=== PATIENT | female | born 1945 | race Caucasian/White ===

== ENCOUNTER 2021-06-25 14:25 | Inpatient (IN) | payer MEDICARE, SELFPAY ==
[2021-06-25] VITALS (11 sets, daily range): BP systolic 118–166; BP diastolic 83–119; PULSE 118–148; RESP 14–36; TEMP 36.7–37.4; O2SAT 93–99; BMI 25.9
--- NOTE | ~2021-06-25 | XR_ITS ---
EXAMINATION: XR chest 2V DATE: 06/25/2021 15:34 INDICATION: Heart palpitations and tachycardia. TECHNIQUE: Frontal and lateral views of the chest are obtained COMPARISON: None available FINDINGS: There are minimal opacities of the lung bases. Small pleural effusions are present. There i s no pneumothorax. A nodular opacity projects in the anterior aspect of the lower thorax on the later al view. Cardiomegaly is noted. There is mild thoracic spondylosis. IMPRESSION: 1. Cardiomegaly. 2. Small pleural effusions. 3. Possible basilar lung nodule. Further evaluation with CT of the chest is recommended. Reviewed, dictated and finalized at location B. IMPRESSION: 1. Cardiomegaly. 2. Small pleural effusions. 3. Possible basilar lung nodule. Further evaluation with CT of the chest is rec ommended.
--- NOTE | ~2021-06-25 | CT_ITS ---
EXAMINATION:CT diagnostic chest wo con DATE: 06/26/2021 09:01 INDICATION: Lung nodule. TECHNIQUE: Computed tomography (CT) of the chest was performed without intravenous contrast. Automate d exposure control and iterative reconstruction technique were employed. The dose-length product (DLP ) was 139.98 mGy-cm. COMPARISON: Chest 2 views 06/25/21 FINDINGS: There are small pleural effusions. There is smooth septal thickening in the lungs, consiste nt with mild pulmonary edema. There is a 4 mm nodule in right upper lobe, likely benign. There is mil d atelectasis bilaterally. There is a pneumatocele in left lower lobe. Cardiomegaly is noted. There a re coronary artery calcifications. No pericardial effusion. There is mild mediastinal lymphadenopathy , likely reactive. There is a small sliding hiatal hernia. There is a 1.6 cm mass in left adrenal gla nd measuring low-attenuation, consistent with an adenoma. There is dextroscoliosis of thoracic spine. There is severe thoracic spondylosis. IMPRESSION: 1. No evidence of malignancy. 2. Mild pulmonary edema. 3. Small pleural effusions. 4. Cardiomegaly. Reviewed, dictated and finalized at location A.
--- NOTE | 2021-06-25 15:20 | ECG_ITS ---
Measurements Intervals [place] Rate: 145 P: 64 MA: 93 QRS: -39 QRSD: 108 T: 147 QT: 285 QTc: 443 Interpretive Statements ATRIAL FLUTTER/TACHYCARDIA WITH RAPID VENTRICULAR RESPONSE FREQUENT VENTRICULAR PREMATURE COMPLEXES LEFT AXIS DEVIATION INTRAVENTRICULAR CONDUCTION DELAY LEFT VENTRICULAR HYPERTROPHY AND ST-T CHANGE POOR R WAVE PROGRESSION, ANTERIOR LEADS CONSIDER INFERIOR INFARCT, AGE INDETERMINATE ABNORMAL ECG Electronically Signed On 06-25-2021 15:46:55 CDT by Edgard Valentin D.O.
[2021-06-25 15:37] LABS: Basophils Absolute Auto 0.1 K/mm3 (0.0-0.1); Basophils Percent Auto 1.3 % (0.2-1.2); Eosinophils Absolute Auto 0.1 K/mm3 (0-0.3); Eosinophils Percent Auto 1.1 % (0-4.4); Hematocrit 41.8 % (37.0-47.0); Hemoglobin 13.6 g/dL (12.0-15.0); Immature Granulocyte Absolute 0.04 K/mm3 (0.00-0.031); Immature Granulocyte Percent A 0.5 % (0-0.5); Lymphocytes Absolute Auto 2.03 K/mm3 (0.9-3.2); Lymphocytes Percent Auto 25.8 % (18.3-44.2); Mean Corpuscular HGB Conc 32.5 g/dl (32-36); Mean Corpuscular Volume 89.1 fl (80-100); Mean Platelet Volume 8.9 fl (7.4-10.4); Monocytes Absolute Auto 0.8 K/mm3 (0.1-0.6); Monocytes Percent Auto 9.5 % (2.6-8.5); Neutrophils Absolute Auto 4.9 K/mm3 (1.3-6.7); Neutrophils Percent Auto 61.8 % (45.5-73.1); Platelet Count Result 221 k/mm3 (150-375); Red Blood Count 4.69 M/mm3 (4.2-5.4); Red Cell Distribution Width 14.6 % (11.5-14.5); White Blood Count 7.9 K/mm3 (4.5-10.0)
[2021-06-25 15:47] LABS: Anion Gap 7 mmol/L (8-16); Blood Urea Nitrogen 18 mg/dL (7-17); Calcium 9.1 mg/dL (8.4-10.2); Carbon Dioxide 25 mmol/L (22-30); Chloride 111 mmol/L (98-107); Estimated CRCL calculation 41 ml/min; Estimated Glomerular Filt Rate > 60; Glucose 110 mg/dL (65-110); Potassium 3.8 mmol/L (3.4-5.0); Sodium 143 mmol/L (137-145)
[2021-06-25 15:53] LABS: INR 1.1; Prothrombin Time 14.4 Seconds (11.1-14.7)
[2021-06-25 15:54] LABS: Partial Thromboplastin Time 26.7 SECONDS (22.3-36.8)
[2021-06-25 16:03] LABS: Troponin I 0.044 ng/mL (0.000-0.034)
--- NOTE | 2021-06-25 17:16 | ED.GENADULT ---
HPI - General Adult General Chief complaint: Arrhythmia/Palpitations Stated complaint: atrial flutter, from paper [employer] office Time Seen by Provider: 06/25/21 16:13 Source: patient History of Present Illness HPI narrative: Patient is a 75 y/o female complaining of fast pulse for 1 week. She state that her pulse was in 140s when she checked with pulse ox. She has no chest pain, SOB or palpitation. Related Data Home Medications Medication Instructions Recorded Confirmed metoprolol tartrate 12.5 mg PO BID 06/25/21 06/25/21 Allergies Allergy/AdvReac Type Severity Reaction Status Date / Time No Known Allergies Allergy Verified 06/25/21 22:59 Review of Systems Constitutional: Constitutional: Denies chills, Denies fever(s), Denies headache(s) and Denies weakness Eyes: Eyes: Denies blurry vision ENT: Denies headache(s) and Denies neck pain Cardiovascular: Cardiovascular: Denies chest pain, Reports palpitations and Denies dyspnea Respiratory: Respiratory: Denies cough and Denies dyspnea Gastrointestinal: Gastrointestinal: Denies abdominal pain, Denies diarrhea, Denies nausea and Denies vomiting Genitourinary: Genitourinary: Denies hematuria and Denies dysuria Musculoskeletal: Musculoskeletal: Denies back pain and Denies neck pain Neurologic: Denies headache(s) and Denies weakness COUNTS INCLUDE 234 BEDS AT THE [facility] Social History Social History Smoking status: Never smoker Second hand tobacco smoke exposure: No Alcohol intake: never Substance use: never Spiritual care concerns: No Exam Const: General: no acute distress and well developed Orientation/consciousness: oriented to person, oriented to place, oriented to time and patient oriented x3 HENMT: Head: normocephalic Ears: external ears normal General nose exam: Normal external nose present Eyes: General: appearance normal, both eyes and all related structures Conjunctivae: conjunctivae normal Neck: Neck: normal visual inspection and full ROM Chest: Chest palpation & inspection: normal inspection of the chest and no tenderness Resp: Effort & Inspection: normal respiratory effort Auscultation: clear to auscultation bilaterally Cardio: Rate: tachycardic Rhythm: regular rhythm GI: GI Palp: No abdominal tenderness and Yes Soft to palpation Skin: General skin exam: normal color and turgor normal Neuro: General: oriented to person, oriented to place, oriented to time and patient oriented x3 Cognition (Neuro): normal cognition Extrem: General: normal to inspection, full ROM and no pedal edema Psych: Appearance: grossly normal Mental Status: mental status grossly normal Affect: normal affect Course Consultations Consultation #1: Discussed with SUSAN Marcus, who agrees to admit. Date: 06/25/21 Time: 17:55 Consultation #2: Discussed with Dr. Duron, who agrees to consult. Date: 06/25/21 Time: 19:12 Vital Signs Vital signs: Vital Signs Temperature 37.4 C 06/25/21 15:17 Pulse Rate 147 H 06/25/21 15:17 Respiratory Rate 14 06/25/21 15:17 Blood Pressure 151/112 H 06/25/21 15:17 Pulse Oximetry 99 06/25/21 15:17 Temperature 36.7 C 06/25/21 23:21 Pulse Rate 125 H 06/25/21 23:21 Respiratory Rate 20 06/25/21 23:21 Blood Pressure 160/94 H 06/25/21 23:21 Pulse Oximetry 97 06/25/21 23:21 Medical Decision Making Vital Signs Vital Signs: Vital Signs Temperature 37.4 C 06/25/21 15:17 Pulse Rate 147 H 06/25/21 15:17 Respiratory Rate 14 06/25/21 15:17 Blood Pressure 151/112 H 06/25/21 15:17 Pulse Oximetry 99 06/25/21 15:17 Temperature 36.7 C 06/25/21 23:21 Pulse Rate 125 H 06/25/21 23:21 Respiratory Rate 20 06/25/21 23:21 Blood Pressure 160/94 H 06/25/21 23:21 Pulse Oximetry 97 06/25/21 23:21 Lab Data Result diagrams: 06/25/21 15:28 06/25/21 15:28 Labs: Lab Results 06/25/21 06/25/21 06/25/21 Range/Units 15
[2021-06-25] MEDS: dilTIAZem HCl INJ 25 MG/5 ML VIAL 10 MG IV PUSH (17:46)
--- NOTE | 2021-06-25 18:30 | PM.IMHP ---
H&P: HPI History of Present Illness Date/Time: 06/25/21 18:30 Chief Complaint: Elevated heart rate. Narrative: This is a very pleasant 75-year-old female with hypertrophic obstructive cardiomyopathy and hypertension who presented to the emergency department earlier this morning via private vehicle from home for evaluation of fast heart rate. She monitors her vital signs at home and over the past 1 week her heart rate has been well above 100 and she was seen by her primary care provider today who found her to be in atrial flutter and she was directed to the emergency department. Interestingly she has absolutely no symptoms and does not feel her heart racing or fluttering. She admits to feeling winded when walking up a flight of stairs though this has been an ongoing problem for a couple of years. She has notice mild swelling in her ankles over the past couple of days, however. At the time my evaluation she is on a diltiazem drip with heart rates ranging between the 115s and 140s. She does not drink caffeine or alcohol. She has not had any recent change in medications though was on nitro front 20 in a couple of weeks ago for a urinary tract infection. She denies chest pain and pleuritic pain. No syncope or near syncope. No nausea, vomiting, or sweats. No history of venous thromboembolism. Review of Systems Review of Systems: Twelve systems were reviewed with pertinent positives and negatives as per HPI. Weight has remained stable. No history of thyroid disease. She denies orthopnea and PND. No nausea, vomiting, or diarrhea. No dysuria, urgency, or urinary retention. Except as documented, all other systems were reviewed and are negative. [facility] Past Medical History Medical History (Updated 06/26/21 @ 00:26 by Angeline Coyle PA-C) Hypertension Hypertrophic obstructive cardiomyopathy Surgical History Surgical History (Updated 06/26/21 @ 00:22 by Angeline Coyle PA-C) No history of previous surgery Family History Family History (Updated 06/26/21 @ 00:23 by Angeline Coyle PA-C) Mother Breast cancer Father Intracranial hemorrhage Daughter Diabetes mellitus Social History Social History (Updated 06/26/21 @ 00:24 by Angeline Coyle PA-C) Social History: Surrogate decision maker: Kareen Short, daughter. Code status: Full code. Smoking status: Never smoker Second hand tobacco smoke exposure: No Alcohol intake: never Substance use: never Additional living arrangements comments: The patient lives with her daughter Kareen in [place]. Additional occupation/education comments: Retired, previously worked at a flower shop. Meds Home Medications and Allergies Home Medications Medication Instructions Recorded Confirmed Type metoprolol tartrate 12.5 mg PO BID 06/25/21 06/25/21 History Allergies Allergy/AdvReac Type Severity Reaction Status Date / Time No Known Allergies Allergy Verified 06/25/21 22:59 Vital Signs Vital Signs - 24 hr 06/25/21 15:17 06/25/21 17:00 06/25/21 17:46 Temperature 99.3 F Pulse Rate 147 H 146 H 145 H Respiratory Rate 14 22 H Blood Pressure 151/112 H 147/104 H 166/111 H Pulse Oximetry 99 95 06/25/21 19:07 06/25/21 19:09 06/25/21 20:02 Temperature Pulse Rate 145 H 146 H 148 H Respiratory Rate 28 H 36 H Blood Pressure 118/94 H 118/94 H 155/119 H Pulse Oximetry 95 96 Exam Narrative: General: A well-developed, well-nourished elderly female sitting up in bed no acute distress. Weight: 64.2 kg. BMI: 25.9. HEENT: PERRL, EOMI. Sclerae anicteric. Mild droop of the left eyelid which she states is chronic. Oral mucosa moist. Oropharynx clear. Neck: Supple. No JVD or bruits. Respiratory: Lungs are clear to auscultation bilaterally. Respirations are nonlabored. Cardiovascular: Fairly regular tachycardia, telemetry shows what appears to be atrial flutter. 2-3/6 systolic murmur best heard at the upper sterna
[2021-06-25] MEDS: ENOXAPARIN 60 MG/0.6 ML SYRINGE SUB-Q (19:11)
[2021-06-25 19:34] LABS: INR 1.1; Prothrombin Time 13.7 Seconds (11.1-14.7)
[2021-06-25 19:50] LABS: Troponin I 0.043 ng/mL (0.000-0.034)
[2021-06-25 20:07] LABS: Thyroid Stimulating Hormone 0.954 uIU/mL (0.465-4.680)
--- NOTE | 2021-06-25 21:14 | PC.NURSE ---
Titrated pt Cardizem to 15mg/hr per KEM Perkins.
--- NOTE | 2021-06-25 22:58 | ADMGEN ---
This patient, Sahra Short, was admitted to [facility]. Patient/family oriented to hospital policies and general routines including ID bracelet, bed and alarms, visiting hours, pain management, procedures, bathroom and other care routines, personal items, smoking policy, room service/diet, and visiting hours. Information on how to activate the Rapid Response Team has been discussed. Patient/Family are encouraged to report perceived risks to care and to ask questions if they do not understand what they are told or what they should do.
[2021-06-25 23:46] LABS: Troponin I 0.042 ng/mL (0.000-0.034)
[2021-06-26] VITALS (21 sets, daily range): BP systolic 94–147; BP diastolic 53–100; PULSE 71–114; RESP 14–16; TEMP 36.8–37.1; O2SAT 93–99
[2021-06-26 06:45] LABS: Hemoglobin 12.8 g/dL (12.0-15.0); Mean Corpuscular Hemoglobin 28.5 pg (26-34); Mean Corpuscular Volume 89.1 fl (80-100); Mean Platelet Volume 8.8 fl (7.4-10.4); Platelet Count Result 205 k/mm3 (150-375); Red Blood Count 4.49 M/mm3 (4.2-5.4); Red Cell Distribution Width 14.6 % (11.5-14.5); White Blood Count 6.8 K/mm3 (4.5-10.0)
[2021-06-26 07:13] LABS: Alanine Aminotransferase 63 U/L (4-35); Albumin Level 3.6 g/dL (3.5-5.1); Alkaline Phosphatase 65 U/L (38-126); Anion Gap 7 mmol/L (8-16); Aspartate Amino Transferase 33 U/L (14-36); Bilirubin,Total 1.2 mg/dL (0.2-1.3); Blood Urea Nitrogen 16 mg/dL (7-17); Calcium 8.4 mg/dL (8.4-10.2); Carbon Dioxide 24 mmol/L (22-30); Chloride 108 mmol/L (98-107); Estimated CRCL calculation 41 ml/min; Estimated Glomerular Filt Rate > 60; Glucose 117 mg/dL (65-110); Potassium 3.7 mmol/L (3.4-5.0); Sodium 139 mmol/L (137-145)
[2021-06-26] MEDS: ONDANSETRON INJ 4 MG/2 ML VIAL IV PUSH (08:00)
[2021-06-26] MEDS: ENOXAPARIN 40 MG/0.4 ML SYRINGE SUB-Q (08:40)
--- NOTE | 2021-06-26 10:21 | PM.CNCAR ---
Assessment and Plan Additional Plan Very interesting 75-year-old lady who has been very stable with hypertrophic cardiomyopathy. She has been very stable despite the fact that by ECHO she has a fairly high LVOT pressure gradient. She presents to the hospital with sustained atrial flutter with which she is also totally asymptomatic other than simply recognizing about 9 days ago that her heart rate was unusually fast when she checks her blood pressure daily. She has had a reasonably good response IV diltiazem controlling her heart rate and is being seen in this setting. At this point I am going to recommend transitioning her from IV to oral diltiazem to provide rate control and I will systemically anticoagulate her with apixaban. Since her a flutter by history is been going on for 9 or 10 days and she is very stable I would not recommend proceeding with a cardioversion during this hospitalization if she does remain stable like this she should be cardioverted in 4-6 weeks. We will keep her in the hospital at least till tomorrow to ensure that she is reasonably stable on oral diltiazem. Raj Agee MD [facility] History of Present Illness History of Present Illness Consult date/time: 06/26/21 10:21 Reason For Visit: atrial flutter, elevated troponin Narrative: This is a very pleasant 75-year-old lady admitted to the hospital because of atrial flutter and in this setting MD seeing her at the request of the hospitalist for assistance with evaluation and management. She has no history of arrhythmias in the past but does interestingly see my partner, Dr. Conrad for hypertrophic cardiomyopathy follow-up. The patient was found to have hypertrophic cardiomyopathy many years ago when she was in her 30s. She does have a family history of this with a brother who also has this diagnosis and has a defibrillator device. She has been totally asymptomatic and so other than low-dose metoprolol she has not required any treatment and was just seen by my partner in the office last month it was asymptomatic. She interestingly is in the habit of checking her blood pressure every day with a home blood pressure monitor cough and noticed about 9-10 days ago that her pulse rate was unusually fast. She felt fine and did not really think of discussing this with anyone until yesterday which she discussed with 1 of her daughters who told her that was alarming and she was seen in our office where an electrocardiogram was recorded. She was very tachycardic in atrial flutter and was sent to the emergency room where she was subsequently admitted and seen last evening with the hospitalist. She was placed on intravenous diltiazem which has nicely controlled her heart rate although with a somewhat high dosage of 15 milligram/hour and she was given a lower dose of Lovenox for anticoagulation. The patient feels well this morning and denies any other complaints. She denies any awareness of tachycardia or palpitations she is not experiencing any orthopnea PND or edema she is having no chest pain. She has never had a syncopal episode. Review of Systems Constitutional: Constitutional: Reports no additional constitutional complaints Eyes: Eyes: Reports no additional eye complaints ENT: Reports system reviewed and no additional complaints, except as documented Cardiovascular: Cardiovascular: Reports no additional cardiovascular complaints Respiratory: Respiratory: Reports no additional respiratory complaints Gastrointestinal: Gastrointestinal: Reports no additional gastrointestinal complaints Musculoskeletal: Musculoskeletal: Reports no additional musculoskeletal complaints Integumentary/Breasts: Skin/Breast: Reports system reviewed and no additional complaints, except as docu Neurologic: Reports system reviewed and no additional complaints, except as documented Psychiatric: Psychiatric: Reports no additional psychiatric complaints Endocrine: Endocrine: Reports no additional e
[2021-06-26] MEDS: dilTIAZem HCL CD 180 MG CAP.ER.24H 360 MG PO (10:40)
--- NOTE | 2021-06-26 12:04 | PM.IMPN ---
Progress Note: A&P Assessment and Plan (1) Atrial flutter with rapid ventricular response: Code(s): I48.92 - Unspecified atrial flutter Status: Acute Assessment and Plan: Patient has mostly no feelings of racing heart or palpitations. She has been started on a Cardizem drip and [facility] cardiology has been consulted for further recommendations. She has been transitioned from Cardizem drip to oral Cardizem. Initiated on apixaban. Monitor rates adjust as needed. (2) Hypertrophic obstructive cardiomyopathy: Code(s): I42.1 - Obstructive hypertrophic cardiomyopathy Status: Acute Assessment and Plan: Patient of Dr. Conrad. Cardiology input is appreciated. This seems to be currently stable. (3) Elevated troponin: Code(s): R77.8 - Other specified abnormalities of plasma proteins Status: Acute Assessment and Plan: Patient is having no chest pain likely these are elevated in the setting of her rapid ventricular rate. Trend is flat. Appreciate cardiology's help. (4) Hypertension: Code(s): I10 - Essential (primary) hypertension Status: Acute Assessment and Plan: Blood pressure is in reasonable range. Continue to monitor with adjustment of rate control medication diltiazem. (5) Pulmonary nodule: Code(s): R91.1 - Solitary pulmonary nodule Status: Acute Assessment and Plan: Possible basilar lung nodule noted on chest x-ray. Chest CT no pulmonary nodules. Additional Plan Code status: Full code DVT prophylaxis: Apixaban Subjective Date/time seen: 06/26/21 12:04 Looks and feels comfortable this morning. Sitting in bed. No major issues last night. Continues to rapid heart rate, although currently less than 110, with diltiazem drip going at 15 mg per. Exam Narrative: Gen: Alert, NAD Abd: Soft, NT, ND Heart: Irregularly irregular Lungs: CTAB Ext: No lower extremity edema Objective Data Vital Signs Vital Signs: Vital Signs - 24 hr 06/25/21 15:17 06/25/21 17:00 06/25/21 17:46 Temperature 99.3 F Pulse Rate 147 H 146 H 145 H Respiratory Rate 14 22 H Blood Pressure 151/112 H 147/104 H 166/111 H Pulse Oximetry 99 95 06/25/21 19:07 06/25/21 19:09 06/25/21 20:02 Temperature Pulse Rate 145 H 146 H 148 H Respiratory Rate 28 H 36 H Blood Pressure 118/94 H 118/94 H 155/119 H Pulse Oximetry 95 96 06/25/21 21:13 06/25/21 21:15 06/25/21 22:00 Temperature Pulse Rate 146 H 146 H 134 H Respiratory Rate 26 H Blood Pressure 133/83 133/83 Pulse Oximetry 93 06/25/21 22:03 06/25/21 23:21 06/26/21 01:14 Temperature 98.0 F Pulse Rate 147 H 125 H 73 Respiratory Rate 34 H 20 Blood Pressure 122/87 160/94 H Pulse Oximetry 97 97 06/26/21 01:37 06/26/21 03:06 06/26/21 05:20 Temperature 98.2 F Pulse Rate 102 H 75 72 Respiratory Rate 16 Blood Pressure 113/65 103/66 Pulse Oximetry 95 06/26/21 07:00 06/26/21 07:30 06/26/21 08:00 Temperature 98.8 F Pulse Rate 96 74 102 H Respiratory Rate 16 Blood Pressure 109/65 100/66 113/100 H Pulse Oximetry 94 94 94 06/26/21 08:20 06/26/21 08:30 06/26/21 09:00 Temperature Pulse Rate 95 96 101 H Respiratory Rate Blood Pressure 103/62 103/62 94/71 L Pulse Oximetry 96 96 06/26/21 09:30 06/26/21 10:00 06/26/21 11:50 Temperature Pulse Rate 95 106 H 94 Respiratory Rate Blood Pressure 102/62 120/77 97/53 L Pulse Oximetry 95 95 Intake/Output Intake/Output: Intake & Output 06/23/21 06/24/21 06/25/21 06/26/21 23:59 23:59 23:59 23:59 Intake Total 252 Balance 252 Meds/Results Medications: Active Medications Generic Name Dose Route Start Last Admin Trade Name Freq PRN Reason Stop Dose Admin Apixaban 5 mg 06/26/21 21:00 Apixaban 5 Mg Tablet PO Q12HR [facility] Diltiazem HCl 360 mg 06/26/21 10:20 06/26/21 10:40 Diltiazem Hcl Cd 180 Mg Cap.Er.24h PO 360 mg QAM TRANG Administration
[2021-06-26] MEDS: FUROSEMIDE INJ 40 MG/4 ML VIAL 20 MG IV PUSH (17:00)
[2021-06-26] MEDS: APIXABAN 5 MG TABLET PO (20:34)
[2021-06-27] VITALS (8 sets, daily range): BP systolic 96–136; BP diastolic 63–90; PULSE 70–118; RESP 12–20; TEMP 36.1–36.8; O2SAT 94–96
[2021-06-27] MEDS: APIXABAN 5 MG TABLET PO (08:47)
[2021-06-27] MEDS: dilTIAZem HCL CD 180 MG CAP.ER.24H 360 MG PO (08:47)
--- NOTE | 2021-06-27 10:22 | PM.IMPN ---
Progress Note: A&P Assessment and Plan (1) Atrial flutter with rapid ventricular response: Code(s): I48.92 - Unspecified atrial flutter Status: Acute Assessment and Plan: Patient has mostly no feelings of racing heart or palpitations. She has been started on a Cardizem drip and [facility] cardiology has been consulted for further recommendations. She has been transitioned from Cardizem drip to oral Cardizem. Initiated on apixaban. Monitor rates adjust as needed. (2) Hypertrophic obstructive cardiomyopathy: Code(s): I42.1 - Obstructive hypertrophic cardiomyopathy Status: Acute Assessment and Plan: Patient of Dr. Conrad. Cardiology input is appreciated. This seems to be currently stable. (3) Elevated troponin: Code(s): R77.8 - Other specified abnormalities of plasma proteins Status: Acute Assessment and Plan: Patient is having no chest pain likely these are elevated in the setting of her rapid ventricular rate. Trend is flat. Appreciate cardiology's help. (4) Hypertension: Code(s): I10 - Essential (primary) hypertension Status: Acute Assessment and Plan: Blood pressure is in reasonable range. Continue to monitor with adjustment of rate control medication diltiazem. (5) Pulmonary nodule: Code(s): R91.1 - Solitary pulmonary nodule Status: Acute Assessment and Plan: Possible basilar lung nodule noted on chest x-ray. Chest CT no pulmonary nodules. Subjective Date/time seen: 06/27/21 10:22 Overall heart rate has improved however does continue to have some spikes of heart rate up to the 130s, she did have a 4 beat run of VT this morning. She was asymptomatic. She has been hemodynamically stable and afebrile. She has been up ambulating and feels comfortable. Exam Narrative: Gen: Alert, NAD Abd: Soft, NT, ND Heart: Irregularly irregular Lungs: CTAB Ext: No lower extremity edema Objective Data Vital Signs Vital Signs: Vital Signs - 24 hr 06/26/21 11:50 06/26/21 12:00 06/26/21 14:00 Temperature Pulse Rate 94 85 99 Respiratory Rate 16 Blood Pressure 97/53 L 98/69 L Pulse Oximetry 99 06/26/21 16:00 06/26/21 17:00 06/26/21 18:00 Temperature 98.7 F Pulse Rate 99 71 71 Respiratory Rate 16 16 Blood Pressure 113/65 Pulse Oximetry 98 95 06/26/21 19:22 06/26/21 21:08 06/26/21 23:14 Temperature 98.2 F 98.6 F Pulse Rate 107 H 114 H 92 Respiratory Rate 16 14 Blood Pressure 147/84 H 124/68 Pulse Oximetry 94 94 06/27/21 02:00 06/27/21 03:00 06/27/21 05:07 Temperature 98.3 F Pulse Rate 84 91 104 H Respiratory Rate 12 Blood Pressure 96/63 L Pulse Oximetry 95 06/27/21 08:00 Temperature 97.6 F Pulse Rate 118 H Respiratory Rate 20 Blood Pressure 136/90 Pulse Oximetry 96 Intake/Output Intake/Output: Intake & Output 06/24/21 06/25/21 06/26/21 06/27/21 23:59 23:59 23:59 23:59 Intake Total 897 550 Output Total 750 500 Balance 147 50 Meds/Results Medications: Active Medications Generic Name Dose Route Start Last Admin Trade Name Freq PRN Reason Stop Dose Admin Apixaban 5 mg 06/26/21 21:00 06/27/21 08:47 Apixaban 5 Mg Tablet PO 5 mg Q12HR TRANG Administration Diltiazem HCl 360 mg 06/26/21 10:20 06/27/21 08:47 Diltiazem Hcl Cd 180 Mg Cap.Er.24h PO 360 mg QAM TRANG Administration Ondansetron HCl 4 mg 06/26/21 07:55 06/26/21 08:00 Ondansetron Inj 4 Mg/2 Ml Vial IV PUSH 4 mg Q6H PRN Administration Nausea And Vomiting Radiology Results: ITS Impressions Chest X-Ray 06/25/21 15:36 IMPRESSION: 1. Cardiomegaly. 2. Small pleural effusions. 3. Possible basilar lung nodule. Further evaluation with CT of the chest is recommended. Chest CT 06/26/21 09:11 IMPRESSION: 1. No evidence of malignancy. 2. Mild pulmonary edema. 3. Small pleural effusions. 4. Cardiomegaly. Quality VTE Prophylaxis VTE
--- NOTE | 2021-06-27 12:17 | PM.PNCARD ---
Progress Note: A&P Assessment and Plan (1) Atrial flutter with rapid ventricular response: Code(s): I48.92 - Unspecified atrial flutter Status: Acute Assessment and Plan: New onset atrial flutter RVR. Started on diltiazem.. Heart rate control is not optimal in but improved. Reasonable to discharge patient today with close outpatient follow-up. Recommend resuming the metoprolol. Patient will check her blood pressure at home and call if it runs less than 100. Patient is also aware that patients with her HOCM can decompensate and she will call if she starts to feel worse instead of better. Outpatient EKG in 1 week, follow-up with Dr. Conrad in 3 weeks. Probable cardioversion after that. If she decompensates we can admit for a FATIMAH guided cardioversion earlier. (2) Hypertrophic obstructive cardiomyopathy: Code(s): I42.1 - Obstructive hypertrophic cardiomyopathy Status: Acute Assessment and Plan: Asymptomatic. (3) Elevated troponin: Code(s): R77.8 - Other specified abnormalities of plasma proteins Status: Acute Assessment and Plan: Due to a flutter RVR superimposed on hypertrophic obstructive cardiomyopathy, no ACS. (4) Acute diastolic CHF (congestive heart failure): Code(s): I50.31 - Acute diastolic (congestive) heart failure Status: Acute Assessment and Plan: Chest x-ray and CT scan shows small effusions so patient was developing CHF even know she appeared asymptomatic. Recommend furosemide 40 mg today then 20 mg daily for 1 week. Subjective Date/time seen: 06/27/21 12:17 Interval history: Follow-up for new onset a flutter RVR and history of hypertrophic obstructive cardiomyopathy. Date of service 06/27/2021: Patient is feeling well, up and about in her room with no particular problems. Still in atrial flutter, with variable heart rate, sometimes 80s, sometimes up to 140s. She remains asymptomatic. Soft blood pressure, 90-1 20s. No chest pain, shortness of breath, or dizziness. Review of Systems Constitutional: Constitutional: Denies fatigue and Denies weakness ENT: Denies epistaxis Cardiovascular: Cardiovascular: Denies chest pain, Denies pedal edema, Denies leg edema, Denies lightheadedness and Denies palpitations Respiratory: Respiratory: Denies chest congestion, Denies dyspnea and Denies dyspnea on exertion Gastrointestinal: Gastrointestinal: Denies abdominal pain and Denies hematochezia Genitourinary: Genitourinary: Denies hematuria Integumentary/Breasts: Skin/Breast: Denies rash Neurologic: Reports system reviewed and no additional complaints, except as documented Psychiatric: Psychiatric: Reports no additional psychiatric complaints Exam Narrative: Very pleasant older lady in no distress Const: General: comfortable and no acute distress HENMT: General nose exam: no epistaxis Eyes: EOM: EOMs intact bilaterally Neck: Neck: supple Resp: Effort & Inspection: normal respiratory effort Auscultation: clear to auscultation bilaterally Cardio: Rhythm: abnormal rhythm irregularly irregular Heart sounds: Murmur heart sound present (3/6 ISMAEL left sternal border) GI: GI Palp: Yes Soft to palpation Skin: General skin exam: normal color Neuro: Cognition (Neuro): normal cognition Speech: normal speech Motor exam (neuro): Normal motor muscle tone present throughout Extrem: General: no edema and no pedal edema Psych: Mental Status: mental status grossly normal Affect: normal affect Objective Data Vital Signs Vital Signs: Vital Signs - 24 hr 06/26/21 14:00 06/26/21 16:00 06/26/21 17:00 Temperature 98.7 F Pulse Rate 99 99 71 Respiratory Rate 16 16 Blood Pressure 113/65 Pulse Oximetry 98 95 06/26/21 18:00 06/26/21 19:22 06/26/21 21:08 Temperature
[2021-06-27] MEDS: METOPROLOL TARTRATE 12.5 MG TABLET PO (13:09)
[2021-06-27] MEDS: FUROSEMIDE 40 MG TABLET PO (13:09)
--- NOTE | 2021-06-27 13:19 | PC.NURSE ---
O2 decreases to 1l at 0900
--- NOTE | 2021-06-27 13:48 | PC.NURSE ---
O2 dc'd at 1300
--- NOTE | 2021-06-27 14:41 | PM.DS ---
DS: Admitting Diagnosis Discharge Date 06/27/2021 Admitting Diagnosis Atrial flutter rapid ventricular rate DS: Discharge Diagnosis Discharge Diagnosis (1) Atrial flutter with rapid ventricular response: Code(s): I48.92 - Unspecified atrial flutter Status: Acute Assessment and Plan: Patient has mostly no feelings of racing heart or palpitations. She has been started on a Cardizem drip and [facility] cardiology has been consulted for further recommendations. She has been transitioned from Cardizem drip to oral Cardizem. Initiated on apixaban. Monitor rates adjust as needed. (2) Hypertrophic obstructive cardiomyopathy: Code(s): I42.1 - Obstructive hypertrophic cardiomyopathy Status: Acute Assessment and Plan: Patient of Dr. Conrad. Cardiology input is appreciated. This seems to be currently stable. (3) Elevated troponin: Code(s): R77.8 - Other specified abnormalities of plasma proteins Status: Acute Assessment and Plan: Patient is having no chest pain likely these are elevated in the setting of her rapid ventricular rate. Trend is flat. Appreciate cardiology's help. (4) Hypertension: Code(s): I10 - Essential (primary) hypertension Status: Acute Assessment and Plan: Blood pressure is in reasonable range. Continue to monitor with adjustment of rate control medication diltiazem. (5) Pulmonary nodule: Code(s): R91.1 - Solitary pulmonary nodule Status: Acute Assessment and Plan: Possible basilar lung nodule noted on chest x-ray. Chest CT no pulmonary nodules. DS: Summary Hospital Course Hospital Course: This is a very pleasant 75-year-old woman with past medical history of hypertrophic obstructive cardiomyopathy and hypertension who was admitted to the hospital on 06/25 after presenting to the emergency department with rapid heart rate. Given history cardiomyopathy, she monitors her vitals at home and reported that for the prior 1 week she has had elevated heart rate still above 100. She was on metoprolol 12.5 mg b.i.d. at home as her only medication. In the emergency department, her vitals showed a blood pressure 151/112, heart rate 147, temperature 37.4?, and pulse oximetry 99%. EKG was consistent with atrial flutter. She was initiated on diltiazem IV infusion and admitted for monitoring. Where initial blood work showed a normal complete blood count and electrolyte panel. Her troponin was mildly elevated at 0.042 with a flat trend. Cardiology evaluated her in the hospital. Her heart rate improved and her diltiazem drip was converted to diltiazem orally. It was recommended that her metoprolol would be continued. She did have a CT scan of her chest that showed no malignancy or pulmonary nodules, however mild pulmonary edema with small bilateral pleural effusions were noted. Cardiomegaly was noted as well. She received furosemide during the hospitalization, with a recommendation that she would be on furosemide 20 mg daily for 1 week after discharge. Given new atrial flutter, she was initiated on anticoagulation with apixaban for prevention of stroke. Throughout her hospitalization she was noted to be hemodynamically stable, initially she required some oxygen but with diuresis was able to wean off oxygen. Plan per Cardiology for follow-up with EKG in 1 week, and with Dr. Conrad in 3 weeks. Time Spent with Patient Time attestation: Total time spent providing and/or coordinating discharge services: Exam Narrative: Gen: Alert, NAD Abd: Soft, NT, ND Heart: Irregularly irregular Lungs: CTAB Ext: No lower extremity edema Discharge Plan Discharge Consulting providers: Raj Agee ; Cory Tapia ; Angeline Coyle ; Edgard Valentin ; Krishna Blank V. ; Leona Bautista Discharging Clinician: Karissa Dunbar Anticipated Discharge Date/Time: 06/27/21 14:48 Patient Disposition: Home, Self-Care Activity:
== END 2021-06-27 15:35 | disposition home or self-care (01) | DRG 308 ==
LOC: ANHED 17:11 → ANHCPC 20:11
PROVIDERS: Emergency Medicine; Physician Assistant; Admitting Provider Internal Medicine Nephrology; Emergency Provider Emergency Medicine; Visit Provider Internal Medicine Nephrology
DX: I48.92 Unspecified atrial flutter (principal); I50.31 Acute diastolic (congestive) heart failure; I42.1 Obstructive hypertrophic cardiomyopathy; I11.0 Hypertensive heart disease with heart failure; R77.8 Other specified abnormalities of plasma proteins; R91.1 Solitary pulmonary nodule
CPT/HCPCS: 36415; 71046; 71250; 80048; 80053; 84443; 84484; 85025; 85027; 85610; 85730; 93005; 96365; 96366; 96372; 96375; 96376; 99285; A9270; G0378; J1650; J1940; J2405

== ENCOUNTER → 2021-08-14 00:15 | Day surgery (SDC) | payer MEDICARE, SELFPAY ==
[2021-08-13 11:44] VITALS: BMI 23.8
[2021-08-14] VITALS (13 sets, daily range): BP systolic 91–137; BP diastolic 60–99; PULSE 62–122; RESP 17–25; TEMP 36.3–36.4; O2SAT 92–97
--- NOTE | 2021-08-14 08:30 | ECG_ITS ---
Measurements Intervals [place] Rate: 66 P: 57 TN: 228 QRS: -40 QRSD: 130 T: 141 QT: 427 QTc: 450 Interpretive Statements SINUS RHYTHM WITH FIRST DEGREE AV BLOCK ATRIAL PREMATURE COMPLEX POSSIBLE LEFT ATRIAL ENLARGEMENT LEFT AXIS DEVIATION INTRAVENTRICULAR CONDUCTION DELAY LEFT VENTRICULAR HYPERTROPHY AND ST-T CHANGE ANTEROSEPTAL INFARCT, AGE INDETERMINATE ABNORMAL ECG Electronically Signed On 08-14-2021 10:44:57 CDT by Edgard Valentin D.O.
--- NOTE | 2021-08-14 09:10 | ECG_ITS ---
Measurements Intervals [place] Rate: 132 P: 42 NM: 109 QRS: -46 QRSD: 118 T: 143 QT: 305 QTc: 453 Interpretive Statements ATRIAL FLUTTER/TACHYCARDIA WITH RAPID VENTRICULAR RESPONSE LEFT AXIS DEVIATION INTRAVENTRICULAR CONDUCTION DELAY LEFT VENTRICULAR HYPERTROPHY AND ST-T CHANGE ANTEROSEPTAL INFARCT, AGE INDETERMINATE CONSIDER INFERIOR INFARCT, AGE INDETERMINATE BASELINE ARTIFACT- II, AVR ABNORMAL ECG Electronically Signed On 08-14-2021 8:54:28 CDT by Edgard Valentin D.O.
[2021-08-14 09:45] LABS: Anion Gap 9 mmol/L (8-16); Blood Urea Nitrogen 22 mg/dL (7-17); Calcium 9.5 mg/dL (8.4-10.2); Carbon Dioxide 24 mmol/L (22-30); Chloride 109 mmol/L (98-107); Estimated CRCL calculation 36 ml/min; Estimated Glomerular Filt Rate > 60; Glucose 108 mg/dL (65-110); Potassium 4.4 mmol/L (3.4-5.0); Sodium 142 mmol/L (137-145)
--- NOTE | 2021-08-14 10:28 | WPDMODSED ---
Moderate Sedation Note-Pt Data Patient Data Diagnosis: Atrial fibrillation/flutter Present Complaint: Atrial fibrillation/flutter Procedure to be performed/Plan: Moderate sedation Electrical cardioversion Allergies Allergy/AdvReac Type Severity Reaction Status Date / Time No Known Allergies Allergy Verified 08/14/21 08:58 Home Medications Medication Instructions Recorded Confirmed Type apixaban [Eliquis] 5 mg PO Q12HR #60 tablet 06/27/21 08/14/21 Rx diltiazem HCl 360 mg PO QAM 30 Days #60 cap 06/27/21 08/14/21 Rx metoprolol succinate 25 mg PO DAILY 08/13/21 08/13/21 History Current Medications: Active Medications Sodium Chloride (Normal Saline Iv) 1,000 mls @ 30 mls/hr IV CONT .Q24H TRANG Sedation/Anesthesia: No previous sedation/anesthesia problems (including family history). [facility] Past Medical History Medical History (Updated 06/27/21 @ 12:24 by Leona Bautista MD) Hypertension Hypertrophic obstructive cardiomyopathy Surgical History Surgical History (Updated 06/26/21 @ 00:22 by Angeline Coyle PA-C) No history of previous surgery Family History Family History (Updated 06/26/21 @ 00:23 by Angeline Coyle PA-C) Mother Breast cancer Father Intracranial hemorrhage Daughter Diabetes mellitus Social History Social History (Updated 06/26/21 @ 00:24 by Angeline Coyle PA-C) Social History: Surrogate decision maker: Kareen Short, daughter. Code status: Full code. Smoking status: Never smoker Second hand tobacco smoke exposure: No Alcohol intake: never Substance use: never Living arrangements: with family Additional living arrangements comments: The patient lives with her daughter Kareen in [place]. Additional occupation/education comments: Retired, previously worked at a [employer] shop. Gender identity (if verbalized by the patient): Female Sexual Orientation (if Verbalized by the Patient): Straight or Heterosexual Mod Sed Physical Exam Physical Exam Pre Procedural Exam: Normal: Appearance, Eyes, Ears, Nose, Airway, Lungs, Heart Size, Heart Rate, Neuro Exam, Extremities and Skin and Variation: Heart Rhythm (Tachycardic, irregularly irregular) Hours since solid foods: 12 Hours since liquid intake: 12 Mallampati Classification: class II Internal Medicine - PN: Obj Da Vital Signs Vital Signs: Vital Signs - 24 hr 08/14/21 08:59 Temperature 36.3 C L Pulse Rate 122 H Respiratory Rate 17 Blood Pressure 137/99 H Pulse Oximetry 94 Meds/Results Medications: Active Medications Generic Name Dose Route Start Last Admin Trade Name Freq PRN Reason Stop Dose Admin Sodium Chloride 1,000 mls @ 30 mls/hr 08/14/21 08:30 Normal Saline Iv IV CONT .Q24H TRANG Labs CBC & Chem 7: 08/14/21 08:52 Labs: Laboratory Results - last 24 hr 08/14/21 08:52 Sodium 142 Potassium 4.4 Chloride 109 H Carbon Dioxide 24 Anion Gap 9 BUN 22 H Creatinine 0.90 Estim Creat Clear Calc 36 Estimated GFR > 60 Glucose 108 Calcium 9.5 Magnesium 2.0 ASA Classification/Sedation ASA Classification/Sedation ASA Class: II Emergent: No Risks: Risks, benefits and alternatives explained and patient/family accepted plan for sedation. Patient re-evaluated immediately prior to sedation.
--- NOTE | 2021-08-14 10:29 | WPDHPUPDATE1 ---
History and Physical Update Update Date/Time: 08/14/21 10:29 History and Physical has been reviewed, including an updated exam of the patient. There are NO changes in the patient's condition. Risks, benefits, and alternatives have been discussed and questions answered. Patient agrees to proceed with procedure. Subjective: No chest pain or shortness breath. Objective: Cardiovascular: Irregular rhythm. Tachycardic Lungs: Clear Neuro: Intact Extremities: Normal Assessment 1. Atrial fibrillation/flutter 2. Hypertrophic obstructive cardiomyopathy Plan: Cardioversion, moderate sedation
--- NOTE | 2021-08-14 10:40 | P.PCNCVR_ITS ---
Cardioversion Cardioversion Date of procedure: 08/14/21 Procedure: Electrical cardioversion Moderate sedation Pre-op diagnosis: Atrial flutter Post-op diagnosis: same Indications: Atrial flutter Description of procedure: After discussing the risks, benefits and alternatives of the procedure the patient agreed both via verbal and written informed consent. Risks discussed included skin irritation or burn, shocking into more problematic rhythm, , adverse reaction to anesthesia, stroke. After time-out was taken and after establishing continuous telemetry monitoring, pulse oxygenation and serial blood pressure assessments procedure was started. Procedure start time 10:31 a.m. Procedure stop time 10:37 a.m. Medications utilized 2 mg of Versed and 25 mcg fentanyl given in divided dosages Medications were administered patient was monitored by Korina Mendez RN Complications: None Blood loss: None Sedation: As above. Versed 2 mg and fentanyl 25 mcg given in divided dosages Findings: Successful anabaptist of sinus rhythm using 125 joules of synchronized biphasic energy Conclusion: 1. Moderate sedation 2. Successful anabaptist of sinus rhythm from atrial flutter using 125 joules of biphasic synchronized energy
--- NOTE | 2021-08-14 13:35 | SUR.PHASEII ---
DISCHARGED HOME, OUT VIA WC TO FAMILY WAITING CAR, WITH ALL PERSONAL BELONGINGS AND DISCHARGE PACKET. VOICES NO C/O. NO DISTRESS NOTED.
== END ==
LOC: ANHCATHLAB 00:16 → ANHCARD 08:31 → ANHCATHLAB 09-09 13:59
PROVIDERS: Visit Provider Internal Medicine Cardiovascular Disease
PROC: 5A2204Z Restoration of Cardiac Rhythm, Single (ICD-10-PCS; principal; 2021-08-14 10:00)
DX: I48.92 Unspecified atrial flutter (principal); I42.1 Obstructive hypertrophic cardiomyopathy; I34.0 Nonrheumatic mitral (valve) insufficiency; I10 Essential (primary) hypertension; Z79.01 Long term (current) use of anticoagulants
CPT/HCPCS: 36415; 80048; 83735; 92960; J2250; J3010; J7040